=== PATIENT | female | born 1985 | race Caucasian/White ===

== ENCOUNTER 2016-11-21 19:12 | Emergency (ER) | payer BC ==
--- NOTE | 2016-11-21 19:57 | Emergency Department Record ---
History of Present Illness - General Chief Complaint: Cough Stated Complaint: COUGH, PAIN IN EARS Time Seen by Provider: 11/21/16 19:53 Source: Patient Mode of Arrival: Ambulatory Limitations: No limitations - History of Present Illness Initial Comments: 30 yo female presents to ED with a CC of cough and congestion symptoms for the past several weeks. Patient reports that she just completed a course of prednisone for for her symptoms, reports that she was treated for walking pneumonia 6 weeks ago. Patient denies health problems at her baseline. MD Complaint: Cough, Nasal congestion Onset/Timin -: Days(s) Severity: Mild Severity scale (1-10): 7 Consistency: Other Improves With: Nothing Worsens With: Nothing Context: Sick contacts Associated Symptoms: Denies other symptoms Treatments Prior to Arrival: None - Related Data Previous Rx's Medication Instructions Recorded Prednisone [Prednisone 20Mg] 20 mg PO TID #15 tab 11/21/16 Allergies Allergy/AdvReac Type Severity Reaction Status Date / Time levofloxacin [From Levaquin] Allergy Mild face Unverified 11/02/16 14:15 breaking out/hives Travel Screening - Travel/Exposure Within Last 30 Days Have you traveled within the last 30 days?: No - Travel/Exposure Within Last Year Have you traveled outside the [place] in the last year?: No - Additonal Travel Details Have you been exposed to anyone with a communicable illness?: No - Travel Symptoms Symptom Screening: None Review of Systems Constitutional: Denies: Chills, Fever, Malaise, Night sweats Eyes: Denies: Eye discharge, Eye pain ENT: Reports: Ear pain. Denies: Congestion, Epistaxis Respiratory: Reports: Cough. Denies: Dyspnea Cardiovascular: Denies: Chest pain, Dyspnea on exertion Endocrine: Denies: Fatigue, Heat or cold intolerance Gastrointestinal: Denies: Abdominal pain, Nausea, Vomiting Genitourinary: Denies: Dysuria, Frequency, Hematuria, Incontinence Musculoskeletal: Denies: Arthralgia, Back pain, Gout, Joint swelling Skin: Denies: Bruising, Change in color, Rash Neurological: Denies: Abnormal gait, Confusion, Headache, Seizure Psychiatric: Denies: Anxiety Hematological/Lymphatic: Denies: Anemia, Blood Clots Past Medical History - SOCIAL HISTORY Smoking Status: Never smoker Alcohol Use: None Drug Use: None - RESPIRATORY Hx Respiratory Disorders: No - CARDIOVASCULAR Hx Cardio Disorders: Yes Hx Hypertension: Yes - NEURO Hx Neuro Disorders: No 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 functioning at 48%) - ENDOCRINE Hx Endocrine Disorders: No - MUSCULOSKELETAL Hx Musculoskeletal Disorders: No - PSYCH Hx Psych Problems: No - HEMATOLOGY/ONCOLOGY Hx Hematology/Oncology Disorders: No Family Medical History Any Significant Family History?: No Hx Diabetes: Father, Grandparents Hx HTN: Grandparents Physical Exam - General General Appearance: Alert, Oriented x3, Cooperative, No acute distress Limitations: No limitations - Head Head exam: Atraumatic, Normocephalic, Normal inspection Head exam detail: negative: Abrasion, Contusion, Durán's sign, General tenderness, Hematoma, Laceration - Eye Eye exam: Normal appearance. negative: Conjunctival injection, Periorbital swelling, Periorbital tenderness, Scleral icterus - ENT ENT exam: TM's normal bilaterally Ear exam: negative: Auricular hematoma, Auricular trauma Nasal Exam: negative: Active bleeding, Discharge, Dried blood, Foreign body Mouth exam: negative: Drooling, Laceration, Muffled voice, Tongue elevation - Neck Neck exam: Normal inspection. negative: Meningismus, Tenderness - Respiratory Respiratory exam: Normal lung sounds bilaterally. negative: Rales, Respiratory distress, Rhonchi, Stridor - Cardiovascular Cardiovascular Exam: Regular rate, Normal rhythm, Normal heart sounds - GI/Abdominal GI/Abdominal exam: Soft. negative: Rebound, Rigid, Tenderness - Rectal Rectal exam: Deferred - exam: Deferred - Extremities Extremities exam: Normal inspection. negative: Calf tenderness, Pedal edema, Tenderness - Back Back exam: Denies: CVA tenderness (R), CVA tenderness (L) - Neurological Neurological exam: Alert, Normal gait, Oriented X3 - Psychiatric Psychiatric exam: Normal affect, Normal mood - Skin Skin exam: Normal color. negative: Abrasion Type of lesion: negative: abrasion Course Vital Signs 11/21/16 19:31 Temperature 98.5 F Pulse Rate [ 94 H Pulse Ox Probe] Respiratory 16 Rate Blood Pressure 169/122 [Left Arm] Pulse Ox 98 - Reevaluation(s) Reevaluation #1: 11/21/16 21:05 Influenza reviewed and is negative, CXR appears negative on examination. Symptoms appear consistent with bronchitis/URI, will re-introduce prednisone for treatment of the patient's bronchitis. 11/21/16 21:12 Disposition Disposition: Discharge Clinical Impression: Bronchitis Disposition: Home, Self-Care Condition: (2) Stable Instructions: Acute Bronchitis (ED) Additional Instructions: Return to ED if your symptoms worsen or if you have any concerns. Prednisone as directed. Follow-up with your family doctor in 3-5 days as directed. Prescriptions: Prednisone [Prednisone 20Mg] 20 mg PO TID #15 tab Forms: Patient Portal Access Time of Disposition: 21:17
[2016-11-21 20:54] LABS: INFLUENZA A NEGATIVE (NEGATIVE); INFLUENZA B NEGATIVE (NEGATIVE)
== END 2016-11-21 21:29 | disposition home or self-care (01) ==
LOC: ER 19:12
DX: J20.9 Acute bronchitis, unspecified (principal)
CPT/HCPCS: 71020; 87400; 99283

== ENCOUNTER 2017-02-25 22:40 | Emergency (ER) | payer BC ==
--- NOTE | 2017-02-25 23:05 | Emergency Department Record ---
History of Present Illness - General Stated complaint: TOE INJURY ON RT FOOT Time Seen by Provider: 02/25/17 23:01 Source: Patient Mode of Arrival: Ambulatory Limitations: No limitations - History of Present Illness Initial comments: 31 yo female presents after injury to her right foot about 30 minutes prior to arrival. She stubbed her foot. She has right mid foot and great toe pain. No nail injury or lacerations. MD Complaint: Extremity pain, Extremity swelling, Joint pain -: Minutes(s) (30) Location: Right, Foot -: Yes Arthralgia Radiation: Distal Quality: Aching Consistency: Constant Improves with: Elevation, Immobilization Worsens with: Palpation, Walking, Weight bearing Associated Symptoms: Denies other symptoms - Related Data Allergies Allergy/AdvReac Type Severity Reaction Status Date / Time levofloxacin [From Levaquin] Allergy Mild face Unverified 02/23/17 08:55 breaking out/hives Review of Systems Constitutional: Denies: Chills, Fever, Malaise, Weakness Eyes: Denies: Eye discharge ENT: Denies: Congestion, Throat pain Respiratory: Denies: Cough Cardiovascular: Denies: Chest pain, Syncope Endocrine: Denies: Fatigue Gastrointestinal: Denies: Abdominal pain, Diarrhea, Nausea, Vomiting Genitourinary: Denies: Dysuria, Urgency Musculoskeletal: Reports: Arthralgia. 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 functioning at 48%) - ENDOCRINE Hx Endocrine Disorders: No - MUSCULOSKELETAL Hx Musculoskeletal Disorders: No - PSYCH Hx Psych Problems: No - HEMATOLOGY/ONCOLOGY Hx Hematology/Oncology Disorders: No Family Medical History Hx Diabetes: Father, Grandparents Hx HTN: Grandparents Physical Exam - General General Appearance: Alert, Oriented x3, Cooperative, No acute distress Limitations: No limitations - Head Head exam: Normal inspection - Eye Eye exam: Normal appearance - ENT ENT exam: Normal exam Ear exam: Normal external inspection Nasal Exam: Normal inspection - Neck Neck exam: Normal inspection, Full ROM. negative: Tenderness - Cardiovascular Cardiovascular Exam: Regular rate, Normal rhythm, Normal heart sounds Peripheral Pulses: 2+: Dorsalis Pedis (R) - Rectal Rectal exam: Deferred - exam: Deferred - Extremities Extremities exam: Normal inspection, Full ROM, Normal capillary refill, Tenderness. negative: Joint swelling Image of Feet: 1 - tenderness, no swelling or bruising, no deformity - Neurological Neurological exam: Alert, Oriented X3 - Psychiatric Psychiatric exam: Normal affect, Normal mood. negative: Agitated, Anxious - Skin Skin exam: Dry, Intact, Normal color, Warm Course Vital Signs 02/25/17 22:58 Temperature 98.6 F Pulse Rate [ 99 H Pulse Ox Probe] Respiratory 20 Rate Blood Pressure 148/101 [Left Arm] Pulse Ox 96 - Reevaluation(s) Reevaluation #1: XR demonstrates a non displaced fracture of the distal phalanx of the great toe , Crutches and post op shoe ordered 02/25/17 23:34 Disposition Disposition: Discharge Clinical Impression: Toe fracture, right Qualifiers: Encounter type: initial encounter Toe: great toe Fracture type: closed Phalanx : distal Fracture alignment: nondisplaced Qualified Code(s): S92.424A - Nondisplaced fracture of distal phalanx of right great toe, initial encounter for closed fracture Disposition: Home, Self-Care Condition: (1) Good Instructions: Toe Fracture (ED) Additional Instructions: elevate to minimize swelling follow up with your doctor next Wednesday as scheduled Time of Disposition: 23:37
--- NOTE | 2017-02-28 16:13 | RADIOLOGY REPORT ---
DATE: 02/26/2017. EXAM: RIGHT FOOT. HISTORY: PAIN. TECHNIQUE: Three views of the right foot. COMPARISON: None. ENCOUNTER: Initial. FINDINGS: There is a nondisplaced fracture involving the proximal portion of the distal phalanx of the great toe. Associated soft tissue swelling. No dislocation. IMPRESSION: NONDISPLACED FRACTURE OF THE DISTAL PHALANX OF THE GREAT TOE. JOB NUMBER: [id number] MTDD
== END 2017-02-26 00:05 | disposition home or self-care (01) ==
LOC: ER 22:40
DX: S92.424A Nondisplaced fracture of distal phalanx of right great toe, initial encounter for closed fracture (principal); W18.49XA Other slipping, tripping and stumbling without falling, initial encounter; I10 Essential (primary) hypertension
CPT/HCPCS: 99283

== ENCOUNTER 2018-09-01 20:52 | Emergency (ER) | payer BC ==
--- NOTE | 2018-09-01 21:02 | Emergency Department Record ---
History of Present Illness - General Chief complaint: Burn/Smoke Inhalation Stated complaint: BURN IN RT HAND Time Seen by Provider: 09/01/18 21:00 Source: Patient Mode of Arrival: Ambulatory Limitations: No limitations - History of Present Illness Initial comments: 32 yo male presents to ED for evaluation following a burn to the right hand while at work. Patient reports that she works at [employer], was applying hot glue to a roof when some dripped down onto her right hand 2-3 days ago. Patient reports mild blistering, (1) blister has ruptured, another is intact. Patient denies redness or purulent drainage from the blistered lesions. Patient denies other injury, reports history of HTN and pre-eclampsia. MD Complaint: Burn Onset/Timin -: Days(s) Type of Exposure: Chemical Smoke Inhalation: None Place: Industrial Location - Extremities: Right: Hand Severity: Moderate Associated Symptoms: Denies other symptoms - Related Data Previous Rx's Medication Instructions Recorded Silver Sulfadiazine [Silvadene] 50 gm TP BID #1 cream..g. 09/01/18 Allergies Allergy/AdvReac Type Severity Reaction Status Date / Time levofloxacin [From Levaquin] Allergy Mild face Unverified 07/06/18 14:38 breaking out/hives lisinopril AdvReac COUGH Unverified 07/06/18 14:38 Review of Systems Constitutional: Denies: Chills, Fever, Malaise, Night sweats Eyes: Denies: Eye discharge, Eye pain ENT: Denies: Congestion, Ear pain, Epistaxis Respiratory: Denies: Cough, Dyspnea Cardiovascular: Denies: Chest pain, Dyspnea on exertion Endocrine: Denies: Fatigue, Heat or cold intolerance Gastrointestinal: Denies: Constipation, Nausea, Vomiting Genitourinary: Denies: Incontinence, Retention Musculoskeletal: Denies: Arthralgia, Back pain, Gout, Joint swelling Skin: Reports: Other (Burn to the index finger, thumb). 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 functioning at 48%) - ENDOCRINE Hx Endocrine Disorders: No - MUSCULOSKELETAL Hx Musculoskeletal Disorders: No - PSYCH Hx Psych Problems: No - HEMATOLOGY/ONCOLOGY Hx Hematology/Oncology Disorders: No Family Medical History Hx Diabetes: Father, Grandparents Hx HTN: Grandparents Physical Exam - General General Appearance: Alert, Oriented x3, Cooperative, Mild distress Limitations: No limitations - Head Head exam: Atraumatic, Normocephalic, Normal inspection Head exam detail: negative: Abrasion, Contusion, Durán's sign, General tenderness, Hematoma, Laceration - Eye Eye exam: Normal appearance. negative: Conjunctival injection, Periorbital swelling, Periorbital tenderness, Scleral icterus - ENT Ear exam: negative: Auricular hematoma, Auricular trauma Nasal Exam: negative: Active bleeding, Discharge, Dried blood, Foreign body Mouth exam: negative: Drooling, Laceration, Muffled voice, Tongue elevation - Neck Neck exam: Normal inspection. negative: Meningismus, Tenderness - Respiratory Respiratory exam: Normal lung sounds bilaterally. negative: Rales, Respiratory distress, Rhonchi, Stridor - Cardiovascular Cardiovascular Exam: Regular rate, Normal rhythm, Normal heart sounds - GI/Abdominal GI/Abdominal exam: Soft. negative: Rebound, Rigid, Tenderness - Rectal Rectal exam: Deferred - exam: Deferred - Extremities Extremities exam: Other (Very mild 2nd degree burn to the lateral index finger/ hand, (2) blisters present measuring 1.0 cm or less. No other 2nd degree burn injuries are present on examination.). negative: Pedal edema, Tenderness - Back Back exam: Denies: CVA tenderness (R), CVA tenderness (L) - Neurological Neurological exam: Alert, Normal gait, Oriented X3 - Psychiatric Psychiatric exam: Normal affect, Normal mood - Skin Skin exam: Normal color. negative: Abrasion Type of lesion: negative: abrasion Course - Reevaluation(s) Reevaluation #1: 09/01/18 21:07 Patient was seen and examined, will initiate treatment with Silvadene as directed. Patient appears stable for discharge at this time. Disposition Disposition: Discharge Clinical Impression: 2nd degree burn Disposition: Home, Self-Care Condition: (2) Stable Instructions: Second Degree Burn (ED) Additional Instructions: Return to ED if your symptoms worsen or if you have any concerns. Silvadene as directed. Follow-up with your family doctor or employee health in 3-5 days as directed. Prescriptions: Silver Sulfadiazine [Silvadene] 50 gm TP BID #1 cream..g. Forms: Patient Portal Access Time of Disposition: 21:02 Quality - Quality Measures Quality Measures: N/A - Blood Pressure Screening Does Patient Have Any of the Following: Active Dx of HTN Blood Pressure Classification: Hypertensive Reading Systolic Measurement: 177 Diastolic Measurement: 118 Screening for High Blood Pressure: Patient Exclusion, Hx of HTN [G9744]
[2018-09-01] MEDS ORDERED: SILVER SULFADIAZINE 25 GM CREAM TOP ONE (21:10)
== END 2018-09-01 21:18 | disposition home or self-care (01) ==
LOC: ER 20:52
DX: T23.291A Burn of second degree of multiple sites of right wrist and hand, initial encounter (principal); X12.XXXA Contact with other hot fluids, initial encounter; Y99.0 Civilian activity done for income or pay; I10 Essential (primary) hypertension
CPT/HCPCS: 99282

== ENCOUNTER 2018-10-16 19:24 | Emergency (ER) | payer BC ==
--- NOTE | 2018-10-16 19:46 | Emergency Department Record ---
History of Present Illness - General Chief Complaint: Cough Stated Complaint: JAW PAIN,FEVER,COUGH Time Seen by Provider: 10/16/18 19:39 Source: Patient Mode of Arrival: Ambulatory Limitations: No limitations - History of Present Illness Initial Comments: 32 yo female presents to ED for evaluation of non-productive cough symptoms following recent treatment for strep pharyngitis 1 months ago, reports jaw pain symptoms and intermittent fevers as well. Patient denies sore throat symptoms, denies headache, denies dental pain or gingival swelling symptoms. Patient reports a history of HTN and CKD related to complications. MD Complaint: Cough Onset/Timin -: Month(s) Severity: Moderate Consistency: Intermittent Improves With: Nothing Worsens With: Nothing Associated Symptoms: Cough - Related Data Allergies Allergy/AdvReac Type Severity Reaction Status Date / Time levofloxacin [From Levaquin] Allergy Mild face Verified 09/01/18 21:03 breaking out/hives lisinopril AdvReac COUGH Verified 09/01/18 21:03 Travel Screening - Travel/Exposure Within Last 30 Days Have you traveled within the last 30 days?: No Review of Systems Constitutional: Reports: Fever. Denies: Chills, Malaise, Night sweats Eyes: Denies: Eye discharge, Eye pain ENT: Reports: Congestion, Ear pain. Denies: Epistaxis Respiratory: Reports: Cough. Denies: Dyspnea Cardiovascular: Denies: Chest pain, Dyspnea on exertion Endocrine: Denies: Fatigue, Heat or cold intolerance Gastrointestinal: Denies: Abdominal pain, Nausea, Vomiting Genitourinary: Denies: Incontinence, Retention Musculoskeletal: Denies: Arthralgia, Back pain Skin: Denies: Bruising, Change in color Neurological: Denies: Abnormal gait, Confusion, Headache, Seizure Psychiatric: Denies: Anxiety Hematological/Lymphatic: Denies: Anemia, Blood Clots Past Medical History - SOCIAL HISTORY Smoking Status: Never smoker Alcohol Use: None Drug Use: None - RESPIRATORY Hx Respiratory Disorders: No - CARDIOVASCULAR Hx Cardio Disorders: Yes Hx Hypertension: Yes - NEURO Hx Neuro Disorders: Yes 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 functioning at 48%) - ENDOCRINE Hx Endocrine Disorders: No - MUSCULOSKELETAL Hx Musculoskeletal Disorders: No - PSYCH Hx Psych Problems: No - HEMATOLOGY/ONCOLOGY Hx Hematology/Oncology Disorders: No Family Medical History Any Significant Family History?: Yes Hx Diabetes: Father, Grandparents Hx HTN: Grandparents Physical Exam - General General Appearance: Alert, Oriented x3, Cooperative, Mild distress Limitations: No limitations - Head Head exam: Atraumatic, Normocephalic, Normal inspection Head exam detail: negative: Abrasion, Contusion, Durán's sign, General tenderness, Hematoma, Laceration - Eye Eye exam: Conjunctival injection. negative: Periorbital swelling, Periorbital tenderness, Scleral icterus - ENT Ear exam: negative: Auricular hematoma, Auricular trauma Nasal Exam: negative: Active bleeding, Discharge, Dried blood, Foreign body Mouth exam: negative: Drooling, Laceration, Muffled voice, Tongue elevation - Neck Neck exam: Normal inspection. negative: Meningismus, Tenderness - Respiratory Respiratory exam: Normal lung sounds bilaterally. negative: Rales, Respiratory distress, Rhonchi, Stridor - Cardiovascular Cardiovascular Exam: Regular rate, Normal rhythm, Normal heart sounds - GI/Abdominal GI/Abdominal exam: Soft. negative: Rebound, Rigid, Tenderness - Rectal Rectal exam: Deferred - exam: Deferred - Extremities Extremities exam: Normal inspection. negative: Calf tenderness, Pedal edema, Tenderness - Back Back exam: Denies: CVA tenderness (R), CVA tenderness (L) - Neurological Neurological exam: Alert, Normal gait, Oriented X3 - Psychiatric Psychiatric exam: Normal affect, Normal mood - Skin Skin exam: Normal color. negative: Abrasion Type of lesion: negative: abrasion Course Vital Signs 10/16/18 19:36 Temperature 98.4 F Pulse Rate [ 95 H Pulse Ox Probe] Respiratory 28 H Rate Blood Pressure 142/108 [Left Arm] Pulse Ox 96 - Reevaluation(s) Reevaluation #1: 10/16/18 20:01 EKG: NSR 92 Normal axis, normal intervals No acute ST-T wave changes. Reevaluation #2: 10/16/18 20:22 CXR: No acute process Influenza: Negative Patient was updated on all results, history and examination suggest URI, likely viral in nature. Patient appears stable for discharge at this time. Disposition Disposition: Discharge Clinical Impression: URI (upper respiratory infection) Qualifiers: URI type: unspecified URI Qualified Code(s): J06.9 - Acute upper respiratory infection, unspecified Disposition: Home, Self-Care Condition: (2) Stable Instructions: Upper Respiratory Infection (ED) Additional Instructions: Return to ED if your symptoms worsen or if you have any concerns. Follow-up with your family doctor in 3-5 days as directed. Forms: Patient Portal Access Time of Disposition: 20:23 Quality - Quality Measures Quality Measures: N/A - Blood Pressure Screening Does Patient Have Any of the Following: No Blood Pressure Classification: Hypertensive Reading Systolic Measurement: 142 Diastolic Measurement: 108 Screening for High Blood Pressure: < First Hypertensive BP, F/U Documented > [ G8950] First Hypertensive Follow-up Interventions: Referral to alternative/primary care provider.
[2018-10-16 19:58] LABS: INFLUENZA A NEGATIVE (NEGATIVE); INFLUENZA B NEGATIVE (NEGATIVE)
--- NOTE | 2018-10-18 08:02 | RADIOLOGY REPORT ---
EXAM: CHEST, TWO VIEWS HISTORY: PATIENT HAS COUGH. TECHNIQUE: Two views of the chest are provided along with the comparison study dated 11/21/16. FINDINGS: The cardiomediastinal silhouette is within normal limits for size and contour. The perihilar appear unremarkable. There is no radiographic evidence of a focal infiltrate, pleural effusion, or pneumothorax. IMPRESSION: NO RADIOGRAPHIC EVIDENCE OF AN ACUTE INTRATHORACIC PROCESS. JOB NUMBER: [id number] [facility]
== END 2018-10-16 20:41 | disposition home or self-care (01) ==
LOC: ER 19:24
DX: J06.9 Acute upper respiratory infection, unspecified (principal); R42 Dizziness and giddiness; R68.84 Jaw pain; R06.00 Dyspnea, unspecified; R05 Cough; I12.9 Hypertensive chronic kidney disease with stage 1 through stage 4 chronic kidney disease, or unspecified chronic kidney disease; N18.3 Chronic kidney disease, stage 3 (moderate)
CPT/HCPCS: 71046; 87400; 93005; 93010; 99284

== ENCOUNTER 2019-01-14 09:11 | Emergency (ER) | payer BC ==
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
--- NOTE | 2019-01-16 14:52 | RADIOLOGY REPORT ---
EXAM: RIGHT FOOT HISTORY: LATERAL FOOT PAIN FOR THE PAST DAY. NO KNOWN INJURY. TECHNIQUE: Three views of the right foot were obtained. Comparison: 03/10/17. FINDINGS: There is a small plantar calcaneal spur. The bones and joints are otherwise unremarkable. There is no acute fracture or dislocation. No focal soft tissue abnormality is identified. IMPRESSION: 1. NO ACUTE RIGHT FOOT PATHOLOGY. 2. SMALL PLANTAR CALCANEAL SPUR. JOB NUMBER: [id number] [facility]
== END 2019-01-14 10:29 | disposition home or self-care (01) ==
LOC: ER 09:11
DX: S96.911A Strain of unspecified muscle and tendon at ankle and foot level, right foot, initial encounter (principal); X58.XXXA Exposure to other specified factors, initial encounter; Y93.H3 Activity, building and construction; I10 Essential (primary) hypertension
CPT/HCPCS: 99283

== ENCOUNTER 2019-02-08 18:18 | Emergency (ER) | payer BC ==
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
== END 2019-02-08 18:45 | disposition home or self-care (01) ==
LOC: ER 18:18
DX: J20.9 Acute bronchitis, unspecified (principal); J01.90 Acute sinusitis, unspecified; I10 Essential (primary) hypertension
CPT/HCPCS: 99282

== ENCOUNTER 2019-04-14 18:34 | Inpatient (IN) | payer BC ==
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
[2019-04-14 19:25] LABS: ABSOLUTE NEUTROPHIL COUNT 7.07; BASO % 0.2 % (0-6); EOS % 3.7 % (0-6); GRAN % 71.4 % (47-80); HEMOGLOBIN 11.8 gm/dl (11.6-16.0); LYMPH % 19.3 % (16-45); MEAN CELL VOLUME 79.2 fl (81-97); MEAN CORPUSCULAR HEMOGLOBIN 25.3 pg (27-33); MEAN CORPUSCULAR HGB CONC 31.9 g/dl (32-36); MEAN PLATELET VOLUME 9.5 fl (7.4-10.4); MONO % 5.4 % (0-9); PLATELET COUNT 520 K/uL (130-400); RED BLOOD COUNT 4.67 M/uL (3.80-5.40); RED CELL DISTRIBUTION WIDTH 15.5 % (11.5-14.5); WHITE BLOOD COUNT W/O DIFF 9.9 K/uL (4.2-12.2)
[2019-04-14 19:32] LABS: CREATININE 1.6 mg/dL (0.5-0.9)
[2019-04-14 19:37] LABS: C-REACTIVE PROTEIN 7.11 mg/dL (<0.5)
[2019-04-14 19:56] LABS: ERYTHROCYTE SEDIMENTATION RATE 89 mm/hr (0-20)
[2019-04-14] MEDS ORDERED: MORPHINE SULFATE 10MG/1ML **1ML VIAL IVP ONE (20:16)
[2019-04-14] MEDS ORDERED: ONDANSETRON HCL IV 4 MG/2 ML VIAL IVP ONE (20:17)
[2019-04-14] MEDS ORDERED: AMPICILLIN SODIUM/SULBACTAM NA 3 G in 0.9 % SODIUM CHLORIDE 100ML 100 ML IVPB ONE (20:24)
[2019-04-14] MEDS ORDERED: HYDROCHLOROTHIAZIDE 25 MG TABLET PO SCH (23:52)
[2019-04-14] MEDS ORDERED: AMPICILLIN SODIUM/SULBACTAM NA 3 G in 0.9 % SODIUM CHLORIDE 100ML 100 ML IVPB SCH (23:52)
[2019-04-14] MEDS ORDERED: ONDANSETRON HCL IV 4 MG/2 ML VIAL IVP PRN (23:52)
[2019-04-15] MEDS: GABAPENTIN 100 MG CAPSULE PO SCH ×4 (00:08→21:04)
[2019-04-15] MEDS: MORPHINE SULFATE 10MG/1ML **1ML VIAL IVP PRN (02:24)
[2019-04-15] MEDS: AMPICILLIN SODIUM/SULBACTAM NA 3 G in 0.9 % SODIUM CHLORIDE 100ML 100 ML IVPB SCH ×4 (02:46→21:05)
[2019-04-15] MEDS ORDERED: HYDROCODONE/APAP 7.5/325MG TABLET PO PRN (11:26)
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
[2019-04-15] MEDS ORDERED: AMPICILLIN SODIUM/SULBACTAM NA 3 G in 0.9 % SODIUM CHLORIDE 100ML 100 ML IVPB SCH ×2 (16:30→16:45)
[2019-04-15] MEDS: HYDROCODONE/APAP 7.5/325MG TABLET PO PRN ×2 (16:49→21:04)
[2019-04-15] MEDS: HYDROCHLOROTHIAZIDE 25 MG TABLET PO SCH (21:45)
[2019-04-16] MEDS: AMPICILLIN SODIUM/SULBACTAM NA 3 G in 0.9 % SODIUM CHLORIDE 100ML 100 ML IVPB SCH ×4 (03:40→21:40)
[2019-04-16] MEDS: HYDROCODONE/APAP 7.5/325MG TABLET PO PRN ×4 (04:22→21:41)
[2019-04-16 08:41] LABS: ABSOLUTE NEUTROPHIL COUNT 6.94; BASO % 0.2 % (0-6); EOS % 4.2 % (0-6); GRAN % 77.5 % (47-80); HEMATOCRIT 36.6 % (35.0-47.0); HEMOGLOBIN 11.4 gm/dl (11.6-16.0); LYMPH % 14.4 % (16-45); MEAN CELL VOLUME 80.1 fl (81-97); MEAN CORPUSCULAR HEMOGLOBIN 24.9 pg (27-33); MEAN CORPUSCULAR HGB CONC 31.1 g/dl (32-36); MEAN PLATELET VOLUME 9.3 fl (7.4-10.4); MONO % 3.7 % (0-9); PLATELET COUNT 470 K/uL (130-400); RED BLOOD COUNT 4.57 M/uL (3.80-5.40); RED CELL DISTRIBUTION WIDTH 15.2 % (11.5-14.5)
[2019-04-16 09:04] LABS: ALB/GLOB RATIO 0.8 (1.1-1.8); ALBUMIN 3.3 g/dL (4.0-5.0); BILIRUBIN,TOTAL 0.5 mg/dL (0.2-1.0); CREATININE 1.5 mg/dL (0.5-0.9); TOTAL PROTEIN 7.5 g/dL (6.6-8.7)
[2019-04-16] MEDS: GABAPENTIN 100 MG CAPSULE PO SCH ×3 (09:32→21:41)
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
[2019-04-16] MEDS: MORPHINE SULFATE 10MG/1ML **1ML VIAL IVP PRN (16:08)
--- NOTE | 2019-04-16 20:23 | CT SCAN REPORT ---
EXAM: CT SCAN PELVIS WO CONTRAST HISTORY: HOT, SWELLING ABRASION REGION OF LEFT GROIN/LEFT HIP. POSSIBLE HEMATOMA OR ABSCESS. TECHNIQUE: Axial CT scan of the pelvis performed without oral or IV contrast at the referring physician's request. COMPARISON: No prior pelvis CT with which to compare. FINDINGS: This study is limited by very large body habitus. The intraperitoneal contents appear essentially negative given the lack of oral and IV contrast. No free intraperitoneal air or free intraperitoneal fluid evident. Uterus tilted towards the left. Appendix visualized and appears negative with no appendicitis evident. Tiny umbilical hernia containing adipose tissue but no bowel. Bilateral spondylolysis of L5 is evident. In the subcutaneous tissues of the left side of the lower pelvis and extending along the left hip and anterolateral aspect of the upper left thigh, there is extensive fluid density present. This abuts the superficial border of the gluteus medius muscle anteriorly as well as the anterior border of the tensor fasciae latae and sartorius muscles. No air bubbles are seen associated with this fluid collection and this could represent some form of seroma although abscess cannot be excluded. There does appear to be some slight skin thickening along the lateral aspect of the upper left thigh as well, which may represent some cellulitis. Far medially and across midline, there is hazy increased density in the subcutaneous tissue suggesting some mild cellulitis in this region as well. This fluid collection does not appear to extend into the muscles of the left inguinal region or upper left thigh. Exact measurements of this large area of fluid density is somewhat limited by its relatively hazy borders but probably measures at least 24 cm in oblique AP by 4.9 cm in oblique transverse measurements and extends for a craniocaudal extent of at least 17.5 cm. By comparison, there is a much smaller fluid collection anterior to the right inguinal region, which measures about 1.7 cm in maximum AP diameter and has a transverse diameter probably of about 10 cm. This is also presumably seroma/hematoma or abscess similar to that seen on the left. IMPRESSION: 1. LARGE FLUID COLLECTION ALONG THE LOWER LATERAL ASPECT OF THE LEFT SIDE OF THE PELVIS AND EXTENDING ALONG THE REGION OF THE LEFT GROIN ANTEROLATERALLY TO ALONG THE ANTERIOR ASPECT OF THE UPPER LEFT THIGH DETAILED ABOVE. 2. BILATERAL SPONDYLOLYSIS OF L5. 3. TINY UMBILICAL HERNIA CONTAINING ADIPOSE TISSUE BUT NO BOWEL. 4. MUCH SMALLER APPARENT FLUID COLLECTION ANTERIOR TO THE RIGHT GROIN WELL DESCRIBED ABOVE. JOB NUMBER: [id number] [facility]
[2019-04-16] MEDS: HYDROCHLOROTHIAZIDE 25 MG TABLET PO SCH (21:41)
[2019-04-17] MEDS: HYDROCODONE/APAP 7.5/325MG TABLET PO PRN ×2 (03:33→13:20)
[2019-04-17] MEDS: AMPICILLIN SODIUM/SULBACTAM NA 3 G in 0.9 % SODIUM CHLORIDE 100ML 100 ML IVPB SCH (03:37)
[2019-04-17 06:43] LABS: ABSOLUTE NEUTROPHIL COUNT 5.65; BASO % 0.4 % (0-6); EOS % 5.7 % (0-6); GRAN % 70.6 % (47-80); HEMATOCRIT 34.4 % (35.0-47.0); HEMOGLOBIN 10.8 gm/dl (11.6-16.0); LYMPH % 17.1 % (16-45); MEAN CELL VOLUME 80.4 fl (81-97); MEAN CORPUSCULAR HEMOGLOBIN 25.2 pg (27-33); MEAN CORPUSCULAR HGB CONC 31.4 g/dl (32-36); MEAN PLATELET VOLUME 9.2 fl (7.4-10.4); MONO % 6.2 % (0-9); PLATELET COUNT 461 K/uL (130-400); RED BLOOD COUNT 4.28 M/uL (3.80-5.40); RED CELL DISTRIBUTION WIDTH 15.2 % (11.5-14.5)
[2019-04-17 07:01] LABS: ALB/GLOB RATIO 0.8 (1.1-1.8); ALBUMIN 3.3 g/dL (4.0-5.0); BILIRUBIN,TOTAL 0.4 mg/dL (0.2-1.0); CREATININE 1.5 mg/dL (0.5-0.9); TOTAL PROTEIN 7.2 g/dL (6.6-8.7)
[2019-04-17] MEDS ORDERED: ACETAMINOPHEN 1,000 MG/100 ML BTL IVPB ONE (08:33)
[2019-04-17] MEDS ORDERED: 0.9 % SODIUM CHLORIDE 1000ML 1,000 ML IV ONE (09:37)
[2019-04-17] MEDS ORDERED: BUPIVACAINE 0.25% W/EPI MPF 30ML VIAL SQ ONE (09:50)
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
[2019-04-17] MEDS ORDERED: MIDAZOLAM HCL 2MG/2ML VIAL IV ONE (13:24)
[2019-04-17] MEDS ORDERED: LIDOCAINE 2% MDV (20MG/ML) 20ML VIAL IV ONE (13:24)
[2019-04-17] MEDS ORDERED: PROPOFOL 10 MG/ML VIAL IV ONE (13:24)
[2019-04-17] MEDS ORDERED: MEPERIDINE 50 MG/1 ML VIAL IVP ONE (13:24)
[2019-04-17] MEDS ORDERED: KETAMINE HCL 100MG/1ML VIAL INJ ONE (13:24)
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
== END 2019-04-17 13:25 | disposition home or self-care (01) | DRG 605 ==
LOC: ER 18:34 → MEDSURG 23:32 → OBSVTOIN 04-15 12:09
PROVIDERS: ADMIT Internal Medicine; ATTEND Internal Medicine
DX: S30.1XXA Contusion of abdominal wall, initial encounter (principal); L03.114 Cellulitis of left upper limb; V89.2XXA Person injured in unspecified motor-vehicle accident, traffic, initial encounter; N28.89 Other specified disorders of kidney and ureter; N18.3 Chronic kidney disease, stage 3 (moderate); I10 Essential (primary) hypertension; E66.9 Obesity, unspecified; Z86.73 Personal history of transient ischemic attack (TIA), and cerebral infarction without residual deficits
CPT/HCPCS: 72192; 80048; 80053; 85025; 85651; 86140; 96365; 96375; 99223; 99233; 99239; 99285; J0295; J2270; J2405; J3490; J7030

== ENCOUNTER 2019-04-23 14:54 | Emergency (ER) | payer BC ==
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
[2019-04-23 15:54] LABS: ABSOLUTE NEUTROPHIL COUNT 5.69; BASO % 0.2 % (0-6); EOS % 2.9 % (0-6); GRAN % 67.2 % (47-80); HEMATOCRIT 35.5 % (35.0-47.0); LYMPH % 22.6 % (16-45); MEAN CELL VOLUME 80.7 fl (81-97); MEAN PLATELET VOLUME 9.5 fl (7.4-10.4); MONO % 7.1 % (0-9); PLATELET COUNT 568 K/uL (130-400); RED CELL DISTRIBUTION WIDTH 15.7 % (11.5-14.5); WHITE BLOOD COUNT W/O DIFF 8.5 K/uL (4.2-12.2)
[2019-04-23 16:08] LABS: CREATININE 1.9 mg/dL (0.5-0.9)
== END 2019-04-23 17:13 | disposition home or self-care (01) ==
LOC: ER 14:54
DX: I89.0 Lymphedema, not elsewhere classified (principal); S30.1XXD Contusion of abdominal wall, subsequent encounter; I12.9 Hypertensive chronic kidney disease with stage 1 through stage 4 chronic kidney disease, or unspecified chronic kidney disease; N18.3 Chronic kidney disease, stage 3 (moderate)
CPT/HCPCS: 80048; 85025; 99284

== ENCOUNTER 2019-05-10 17:25 | Emergency (ER) | payer BC ==
[2019-05-10] MEDS ORDERED: ONDANSETRON HCL IV 4 MG/2 ML VIAL IVP ONE (18:04)
[2019-05-10] MEDS ORDERED: MORPHINE SULFATE 5 MG/ML VIAL IVP ONE (18:04)
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
[2019-05-10] MEDS ORDERED: AMPICILLIN SODIUM/SULBACTAM NA 3 G in 0.9 % SODIUM CHLORIDE 100ML 100 ML IVPB ONE (18:15)
[2019-05-10] MEDS ORDERED: 0.9 % SODIUM CHLORIDE 1000ML 1,000 ML IV SCH (18:15)
[2019-05-10 18:18] LABS: ABSOLUTE NEUTROPHIL COUNT 6.82; BASO % 0.2 % (0-6); EOS % 1.1 % (0-6); GRAN % 75.8 % (47-80); HEMATOCRIT 36.2 % (35.0-47.0); HEMOGLOBIN 11.2 gm/dl (11.6-16.0); LYMPH % 16.5 % (16-45); MEAN CELL VOLUME 79.2 fl (81-97); MEAN CORPUSCULAR HEMOGLOBIN 24.5 pg (27-33); MEAN CORPUSCULAR HGB CONC 30.9 g/dl (32-36); MEAN PLATELET VOLUME 8.9 fl (7.4-10.4); MONO % 6.4 % (0-9); PLATELET COUNT 501 K/uL (130-400); RED BLOOD COUNT 4.57 M/uL (3.80-5.40); RED CELL DISTRIBUTION WIDTH 15.3 % (11.5-14.5)
[2019-05-10 18:29] LABS: CREATININE 1.6 mg/dL (0.5-0.9)
[2019-05-10 18:35] LABS: C-REACTIVE PROTEIN 4.94 mg/dL (<0.5)
[2019-05-10 18:52] LABS: ERYTHROCYTE SEDIMENTATION RATE 97 mm/hr (0-20)
== END 2019-05-10 19:28 | disposition home or self-care (01) ==
LOC: ER 17:25
DX: T81.89XA Other complications of procedures, not elsewhere classified, initial encounter (principal); Y83.8 Other surgical procedures as the cause of abnormal reaction of the patient, or of later complication, without mention of misadventure at the time of the procedure; I10 Essential (primary) hypertension
CPT/HCPCS: 80048; 85025; 85651; 86140; 96365; 96375; 99284; J0295; J2405; J7030

== ENCOUNTER 2019-06-29 14:03 | Emergency (ER) | payer BC ==
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
[2019-06-29 14:49] LABS: HEMATOCRIT 35.3 % (35.0-47.0); HEMOGLOBIN 11.1 gm/dl (11.6-16.0); MEAN CELL VOLUME 80.6 fl (81-97); MEAN CORPUSCULAR HEMOGLOBIN 25.3 pg (27-33); MEAN CORPUSCULAR HGB CONC 31.4 g/dl (32-36); MEAN PLATELET VOLUME 10.2 fl (7.4-10.4); PLATELET COUNT 303 K/uL (130-400); RED BLOOD COUNT 4.38 M/uL (3.80-5.40); RED CELL DISTRIBUTION WIDTH 19.3 % (11.5-14.5)
[2019-06-29 15:03] LABS: BILIRUBIN,TOTAL 0.2 mg/dL (0.2-1.0); CREATININE 1.5 mg/dL (0.5-0.9); INR 0.9; PARTIAL THROMBOPLASTIN TIME 26.4 SECONDS (24.5-39.1); PROTHROMBIN TIME (PATIENT) 9.6 SECONDS (9.5-12.1)
[2019-06-29 15:04] LABS: TOTAL PROTEIN 7.8 g/dL (6.6-8.7)
[2019-06-29 15:09] LABS: ALBUMIN 3.9 g/dL (4.0-5.0)
--- NOTE | 2019-06-30 13:18 | CT SCAN REPORT ---
EXAM: EMERGENCY CT OF THE ABDOMEN AND PELVIS WITHOUT CONTRAST HISTORY: BLOODY STOOLS WITH CLOTS, FEVER, LEFT INGUINAL DRAIN FOR LEFT INGUINAL WOUND, MOST RECENTLY LATE APRIL. TECHNIQUE: Axial CT scan of the abdomen and pelvis was performed without oral or IV contrast at the referring physician's request. Comparison: No prior abdomen CT, but comparison is made with the pelvic CT dated 04/14/19. FINDINGS: No calcified gallstones are seen within the gallbladder. No intrarenal calculi or hydronephrosis identified on either side. No definite hydroureter on either side as well. No definite ureteral calculus seen on either side and no bladder calculus evident. Evaluation of the bowel and viscera extremely limited without oral or IV contrast. Given this limitation, no definite hepatic, splenic, adrenal, pancreatic, or renal mass identified. There is some diffuse fatty infiltration of the liver present. The appendix is visualized and appears negative. No definite free intraperitoneal air or free intraperitoneal fluid identified. Bilateral spondylolysis of L5 again evident with no definite spondylolisthesis of L5 on S1. Tilting of the upper visualized spine to the right which may be due to positioning or spasm. The small fluid collection previously seen anterior to the right groin has regressed to the point where there is no longer an appreciable fluid collection in this location, just some minor linear density which may be some scarring. At the site of the large fluid collection along the lower left aspect of the left side of the pelvis and extending along the left groin anterolaterally to the upper left thigh on the prior study, there has also been marked reduction with a dominant fluid collection no longer identified in this location, but instead with just some ill defined streaky density in the subcutaneous tissues as well as some linear opacity which may represent some scarring. Some slightly prominent inguinal nodes bilaterally are likely just reactive. The somewhat linear oriented soft tissue thickening in the subcutaneous tissues of the left lateral pelvis does extend down to the level of the gluteus medius on the left, but no obvious abnormality of the muscle itself identified. IMPRESSION: 1. DIFFUSE FATTY INFILTRATION OF THE LIVER. 2. NO DEFINITE URINARY TRACT CALCULI OR HYDRONEPHROSIS EVIDENT. 3. BILATERAL SPONDYLOLYSIS OF L5 BEFORE. 4. RESOLUTION OF THE PREVIOUSLY SEEN FLUID COLLECTION ANTERIOR TO THE RIGHT GROIN. 5. RESOLUTION OF THE LARGE FLUID COLLECTION LATERAL TO THE LEFT SIDE OF THE PELVIS AND ANTEROLATERAL TO THE LEFT GROIN, THERE IS STILL SOME RESIDUAL HAZY DENSITY IN THE SUBCUTANEOUS TISSUES WELL SOME THICKENED LINEAR DENSITY, WHICH MAY ALL REPRESENT RESIDUAL SCARRING. THIS THICKENED LINEAR DENSITY EXTENDS DOWN TO THE SUPERFICIAL ASPECT OF THE LEFT GLUTEUS MEDIUS MUSCLE, BUT NO DEFINITE UNDERLYING MUSCLE ABNORMALITY IDENTIFIED. JOB NUMBER: [id number] MTDD
== END 2019-06-29 17:04 | disposition home or self-care (01) ==
LOC: ER 14:03
DX: K62.5 Hemorrhage of anus and rectum (principal); R10.2 Pelvic and perineal pain; D61.1 Drug-induced aplastic anemia; I10 Essential (primary) hypertension; D50.9 Iron deficiency anemia, unspecified
CPT/HCPCS: 74176; 80053; 82728; 82746; 83550; 84703; 85027; 85610; 85730; 99284

== ENCOUNTER 2019-07-20 13:18 | Day surgery (SDC) | payer BC ==
[2019-07-20] MEDS ORDERED: LIDOCAINE 2% MDV (20MG/ML) 20ML VIAL IV ONE (13:19)
[2019-07-20] MEDS ORDERED: PROPOFOL 10 MG/ML VIAL IV ONE (13:19)
--- NOTE | 2019-07-21 12:50 | Operative Note ---
OPERATION: COLONOSCOPY. PREOPERATIVE DIAGNOSIS: Hematochezia. POSTOPERATIVE DIAGNOSIS: Normal exam. PREPARATION QUALITY: Excellent. ESTIMATED BLOOD LOSS: None. SPECIMENS: None. COMPLICATIONS: None apparent. PROCEDURE: After informed consent was obtained from the patient, she was placed in the left lateral decubitus position in the endoscopy suite, sedated and monitored by the department of anesthesia. Digital rectal exam was unremarkable. A well-lubricated [id number] colonoscope was inserted into the rectum and advanced to the cecum. Preparation quality was excellent. The cecum, cecal bulb, terminal ileum, ascending colon, transverse colon, descending colon, sigmoid colon, and rectum were free of inflammatory changes, mass lesions, or polyps. Forward and J-turn views of the rectum and anorectum were unrevealing. The endoscope was straightened, the rectal ampulla deflated, and the endoscope was removed. RECOMMENDATIONS: I would suggest the patient follow a high-fiber diet. She is to undergo repeat exam at age 45. As always, thank you for allowing me to participate in the healthcare of your patients. ARVIND
== END 2019-07-20 14:32 | disposition home or self-care (01) ==
LOC: HOP 13:18
PROVIDERS: ATTEND Internal Medicine Gastroenterology
DX: K92.1 Melena (principal); K62.5 Hemorrhage of anus and rectum; I10 Essential (primary) hypertension; E78.00 Pure hypercholesterolemia, unspecified

== ENCOUNTER 2019-10-19 06:24 | Emergency (ER) | payer BC ==
--- NOTE | 2019-10-19 06:38 | Emergency Department Record ---
History of Present Illness - General Chief Complaint: Ankle/Foot Injury Stated Complaint: BLISTER ON FOOT ONE WEEK Time Seen by Provider: 10/19/19 06:26 Source: Patient Mode of Arrival: Ambulatory Limitations: No limitations - History of Present Illness Initial Comments: 33 yo female presents to ED for evaluation of a clear blister to the lateral aspect of the right foot that has been present for 5-6 days. Patient denies fevers, chills, or recent illness. Patient was concerned as the blister is painful, wanted to have it evaluated. Patient does report a history of CRF at her baseline. MD Complaint: Other Onset/Timin -: Days(s) Injury: Foot: Right Severity: Mild Improves With: Immobilization Worsens With: Palpation, Weight bearing - Related Data Allergies Allergy/AdvReac Type Severity Reaction Status Date / Time levofloxacin [From Levaquin] Allergy Mild face Unverified 09/25/19 15:34 breaking out/hives lisinopril AdvReac COUGH Unverified 09/25/19 15:34 Review of Systems Constitutional: Denies: Chills, Fever, Malaise, Night sweats Eyes: Denies: Eye discharge, Eye pain, Photophobia ENT: Denies: Congestion, Ear pain, Epistaxis Respiratory: Denies: Cough, Dyspnea Cardiovascular: Denies: Chest pain, Dyspnea on exertion Endocrine: Denies: Fatigue, Heat or cold intolerance Gastrointestinal: Denies: Abdominal pain, Nausea, Vomiting Genitourinary: Denies: Incontinence, Retention Musculoskeletal: Denies: Arthralgia, Back pain Skin: Reports: Other (Blister to the right lateral foot). Denies: Bruising, Change in color Neurological: Denies: Abnormal gait, Confusion, Headache, Seizure Psychiatric: Denies: Anxiety Hematological/Lymphatic: Denies: Anemia, Blood Clots Past Medical History - SOCIAL HISTORY Smoking Status: Never smoker Alcohol Use: None, Rare Drug Use: None - RESPIRATORY Hx Respiratory Disorders: Yes Hx Pneumonia: Yes (2 years ago) - CARDIOVASCULAR Hx Cardio Disorders: Yes Hx Edema: Yes (ON DIURETICS) - NEURO Hx Neuro Disorders: Yes Hx Headaches: Yes (OCCASS IF B/P IS HIGH) Hx Seizures: Yes (with had eclampsia) Hx TIA: Yes (23 y/o stated dx was anxiety) - GI Hx GI Disorders: Yes Hx Abdominal Pain: Yes (PT HAS PAIN LEFT GROIN AREA WHERE OPEN WOUND IS.) - Hx Genitourinary Disorders: Yes Hx Renal Disease: 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) - ENDOCRINE Hx Endocrine Disorders: No Hx Diabetes: No (pt said she was "pre-diabetic") Hx Thyroid Disease: No - MUSCULOSKELETAL Hx Musculoskeletal Disorders: Yes Comment:: left upper thigh injury, no longer has wound vac - PSYCH Hx Psych Problems: No - HEMATOLOGY/ONCOLOGY Hx Hematology/Oncology Disorders: No Hx Bruising: (DENIES) Family Medical History Any Significant Family History?: Yes Hx Heart Disease: Father, Grandparents Hx HTN: Grandparents Hx Kidney Disease: Mother, Brother/Sister Hx Seizures: Brother/Sister Physical Exam - General General Appearance: Alert, Oriented x3, Cooperative, No acute distress Limitations: No limitations - Head Head exam: Atraumatic, Normocephalic, Normal inspection Head exam detail: negative: Abrasion, Contusion, Durán's sign, General tenderness, Hematoma, Laceration - Eye Eye exam: Normal appearance. negative: Conjunctival injection, Periorbital swelling, Periorbital tenderness, Scleral icterus - ENT Ear exam: negative: Auricular hematoma, Auricular trauma Nasal Exam: negative: Active bleeding, Discharge, Dried blood, Foreign body Mouth exam: negative: Drooling, Laceration, Muffled voice, Tongue elevation - Neck Neck exam: Normal inspection. negative: Meningismus, Tenderness - Respiratory Respiratory exam: Normal lung sounds bilaterally. negative: Rales, Respiratory distress, Rhonchi, Stridor - Cardiovascular Cardiovascular Exam: Regular rate, Normal rhythm, Normal heart sounds - GI/Abdominal GI/Abdominal exam: Soft. negative: Rebound, Rigid, Tenderness - Rectal Rectal exam: Deferred - exam: Deferred - Extremities Extremities exam: Other (1.5 cm clear blister to the lateral aspect of the right foot on examination, no erythema/induration or evidence of abscess/infection on examination.). negative: Calf tenderness, Pedal edema, Tenderness - Back Back exam: Denies: CVA tenderness (R), CVA tenderness (L) - Neurological Neurological exam: Alert, Normal gait, Oriented X3 - Psychiatric Psychiatric exam: Normal affect, Normal mood - Skin Skin exam: Normal color. negative: Abrasion Type of lesion: negative: abrasion Course Vital Signs 10/19/19 06:29 Temperature 98.6 F Pulse Rate [ 108 H Left] Respiratory 16 Rate Blood Pressure 143/94 [Left Arm] Pulse Ox 99 - Reevaluation(s) Reevaluation #1: 10/19/19 06:42 Patient presents with uncomplicated blister to the right foot, no evidence for infection on examination. Recommended maintaining the sterile environment of the blister, cushioning as needed. Patient appears stable for discharge at this time. Disposition Disposition: Discharge Clinical Impression: Blister of foot, right Qualifiers: Encounter type: initial encounter Qualified Code(s): S90.821A - Blister (nonthermal), right foot, initial encounter Disposition: Home, Self-Care Condition: (2) Stable Instructions: Blister (ED) Additional Instructions: Return to ED if your symptoms worsen or if you have any concerns. Cover the blister with padding for comfort. Follow-up with your family doctor in 3-5 days as directed. Forms: Patient Portal Access Time of Disposition: 06:37 Quality - Quality Measures Quality Measures: N/A - Blood Pressure Screening Does Patient Have Any of the Following: Active Dx of HTN Blood Pressure Classification: Hypertensive Reading Systolic Measurement: 143 Diastolic Measurement: 94 Screening for High Blood Pressure: Patient Exclusion, Hx of HTN [G9744]
== END 2019-10-19 06:40 | disposition home or self-care (01) ==
LOC: ER 06:24
DX: S90.821A Blister (nonthermal), right foot, initial encounter (principal); X58.XXXA Exposure to other specified factors, initial encounter; I10 Essential (primary) hypertension
CPT/HCPCS: 99282

== ENCOUNTER 2019-11-02 06:31 | Emergency (ER) | payer BC ==
[2019-11-02] MEDS ORDERED: ACETAMINOPHEN 500 MG TABLET PO ONE (06:45)
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
[2019-11-02 06:58] LABS: ABSOLUTE NEUTROPHIL COUNT 7.73; BASO % 0.2 % (0-6); EOS % 1.7 % (0-6); GRAN % 75.4 % (47-80); HEMATOCRIT 39.4 % (35.0-47.0); HEMOGLOBIN 12.2 gm/dl (11.6-16.0); LYMPH % 18.3 % (16-45); MEAN CELL VOLUME 77.6 fl (81-97); MEAN PLATELET VOLUME 9.5 fl (7.4-10.4); MONO % 4.4 % (0-9); PLATELET COUNT 360 K/uL (130-400); RED BLOOD COUNT 5.08 M/uL (3.80-5.40); RED CELL DISTRIBUTION WIDTH 16.3 % (11.5-14.5); WHITE BLOOD COUNT W/O DIFF 10.2 K/uL (4.2-12.2)
[2019-11-02 07:10] LABS: CREATININE 1.7 mg/dL (0.5-0.9)
[2019-11-02 07:16] LABS: C-REACTIVE PROTEIN 2.71 mg/dL (<0.5)
--- NOTE | 2019-11-02 09:01 | CT SCAN REPORT ---
EXAMINATION: CT Lower Extremity left hip without IV Contrast EXAM DATE: 11/02/2019 8:19 AM TECHNIQUE: Standard protocol CT images were obtained through the Left hip without intravenous contrast. Sagittal and coronal images were reconstructed. INDICATION: left hip pain, prior infection COMPARISON: Left hip CT 09/14/2019 ENCOUNTER: Not applicable FINDINGS: No acute fracture is appreciated. Stable appearing postoperative scarring at the anterolateral aspect of the left hip. No significant fluid demonstrated. Similar appearing subcutaneous fat stranding ove r the left inguinal region as well, potentially sequela of prior prior surgery and/or fat necrosis. 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 Reproductive organs and urinary bladder are unremarkable. IMPRESSION: Stable postoperative and/or post inflammatory scarring without drainable fluid collection at this james e. Dictated by: Mich Delgado MD on 11/02/2019 8:54 AM. .
== END 2019-11-02 09:28 | disposition home or self-care (01) ==
LOC: ER 06:31
DX: M25.552 Pain in left hip (principal); N18.3 Chronic kidney disease, stage 3 (moderate); Z98.890 Other specified postprocedural states
CPT/HCPCS: 80048; 85025; 86140; 99284

== ENCOUNTER 2019-11-20 20:29 | Emergency (ER) | payer BC ==
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
[2019-11-20] MEDS ORDERED: CLINDAMYCIN 150 MG CAP PO ONE (20:42)
[2019-11-20] MEDS ORDERED: ACETAMINOPHEN 500 MG TABLET PO ONE (20:45)
[2019-11-20 20:57] LABS: ABSOLUTE NEUTROPHIL COUNT 7.56; BASO % 0.2 % (0-6); EOS % 1.9 % (0-6); GRAN % 73.7 % (47-80); HEMATOCRIT 38.9 % (35.0-47.0); HEMOGLOBIN 12.2 gm/dl (11.6-16.0); LYMPH % 18.3 % (16-45); MEAN CELL VOLUME 77.8 fl (81-97); MEAN CORPUSCULAR HEMOGLOBIN 24.4 pg (27-33); MEAN CORPUSCULAR HGB CONC 31.4 g/dl (32-36); MEAN PLATELET VOLUME 9.8 fl (7.4-10.4); MONO % 5.9 % (0-9); PLATELET COUNT 352 K/uL (130-400); WHITE BLOOD COUNT W/O DIFF 10.3 K/uL (4.2-12.2)
[2019-11-20 21:10] LABS: CREATININE 1.7 mg/dL (0.5-0.9)
[2019-11-20 21:15] LABS: C-REACTIVE PROTEIN 1.66 mg/dL (<0.5)
== END 2019-11-20 21:33 | disposition home or self-care (01) ==
LOC: ER 20:29
DX: N61.0 Mastitis without abscess (principal); N18.3 Chronic kidney disease, stage 3 (moderate)
CPT/HCPCS: 80048; 85025; 86140; 99283; 99284